=== PATIENT | female | born 1990 | race Hispanic/Latino ===

== ENCOUNTER 2020-12-12 11:38 | Emergency (ER) | payer SELFPAY ==
--- OUTSIDE RECORDS SUMMARY | 2020-12-12 11:43 | XMS REPORT | Continuity of Care Document ---
:1990 Author Organization [facility] Address [address] [place] [address] Dr. Workman [address] [place] [id number] Care Team Providers Name Role Phone Unavailable Unavailable Unavailable Problems This patient has no known problems. Allergies, Adverse Reactions, Alerts This patient has no known allergies or adverse reactions. Medications This patient has no known medications. Procedures This patient has no known procedures. Results This patient has no known results.
--- NOTE | 2020-12-12 14:11 | ER ---
Nurse's Notes [facility] Name: Radha Romo Age: 30 yrs Sex: Female : 1990 Arrival Date: 12/12/2020 Time: 11:41 Bed Treatment Private MD: Diagnosis: Presentation: 12/12 12:08 Chief complaint: Patient states: "I woke up with the right side of my neck swollen". Pt aa5 denies sore throat, denies any recent illness. Coronavirus screen: At this time, the client does not indicate any symptoms associated with coronavirus-19. Ebola Screen: Patient negative for fever greater than or equal to 101.5 degrees Fahrenheit, and additional compatible Ebola Virus Disease symptoms. Initial Sepsis Screen: Does the patient meet any 2 criteria? No. Patient's initial sepsis screen is negative. Does the patient have a suspected source of infection? No. Patient's initial sepsis screen is negative. Risk Assessment: Do you want to hurt yourself or someone else? Patient reports no desire to harm self or others. Onset of symptoms was December 2020. 12:08 Method Of Arrival: Ambulatory aa5 12:08 Acuity: ANDREEA 4 aa5 Historical: - Allergies: 12:09 Codeine; aa5 - PMHx: 12:09 None; aa5 - PSHx: 12:09 Cholecystectomy; aa5 - Immunization history:: Client reports having NOT received the Covid vaccine. - Social history:: Smoking status: Patient reports the use of cigarette tobacco products, denies chronic smoking, but will smoke occasionally. Vital Signs: 12:09 BP 108 / 70; Pulse 62; Resp 16 S; Temp 97.0(TE); Pulse Ox 99% on R/A; Weight 86.18 kg aa5 (R); Height 5 ft. 2 in. (157.48 cm) (R); 12:09 Body Mass Index 34.75 (86.18 kg, 157.48 cm) aa5 ED Course: 11:41 Patient arrived in ED. mr 12:09 Triage completed. aa5 12:09 Arm band placed on. aa5 14:10 Geetha Garcia, RN is Primary Nurse. iw Administered Medications: No medications were administered Outcome: 14:10 Patient left the ED. iw Signatures: Gay Arce mr Geetha Garcia, RN RN iw Afshan Campa, RN RN aa5
[2020-12-12 14:15] VITALS: BP 108/70; TEMP 97; O2SAT 99
== END 2020-12-12 14:10 | disposition left against medical advice (07) ==
LOC: ER 11:38
DX: Z53.21 Procedure and treatment not carried out due to patient leaving prior to being seen by health care provider (principal)
CPT/HCPCS: 99281